=== PATIENT | male | born 1980 | race Caucasian/White ===

== ENCOUNTER 2016-09-02 06:29 | Emergency (ER) | payer BC ==
--- NOTE | 2016-09-02 07:39 | ED ---
General Adult HPI - General Chief complaint: Skin/Abscess/Foreign Body Stated complaint: Ear cyst Time Seen by Provider: 09/02/16 07:05 Source: patient, RN notes reviewed Mode of arrival: ambulatory Limitations: no limitations - History of Present Illness Initial comments: Patient is a pleasant 36-year-old male presenting to the emergency Department with left ear discomfort. Patient has had similar symptoms approximately 5 times total between both ears. Patient has pain and swelling. Symptoms have progressed over a few days. Patient did try to get into Dr. Jiménez's office yesterday however there is no availability. Patient has had previous incision and drainage. No fever. - Related Data Previous Rx's Medication Instructions Recorded Sulfamethox-Tmp 800-160Mg [Bactrim 2 each PO Q12HR #40 tab 09/02/16 DS 800-160 mg] Allergies Allergy/AdvReac Type Severity Reaction Status Date / Time No Known Allergies Allergy Verified 09/02/16 06:34 Review of Systems ROS Statement: Those systems with pertinent positive or pertinent negative responses have been documented in the HPI. ROS Other: All systems not noted in ROS Statement are negative. Constitutional: Denies: fever Eyes: Denies: eye pain ENT: Reports: ear pain Respiratory: Denies: cough Cardiovascular: Denies: chest pain Endocrine: Denies: fatigue Gastrointestinal: Denies: abdominal pain Genitourinary: Denies: dysuria Musculoskeletal: Denies: back pain Skin: Reports: lesions Past Medical History Past Medical History: No Reported History History of Any Multi-Drug Resistant Organisms: None Reported Past Surgical History: No Surgical Hx Reported Past Psychological History: No Psychological Hx Reported Smoking Status: Current every day smoker Past Alcohol Use History: Occasional Past Drug Use History: None Reported General Exam Limitations: no limitations General appearance: alert, in no apparent distress Head exam: Present: atraumatic Eye exam: Present: normal appearance, PERRL ENT exam: Present: normal oropharynx, other (2 cm area of swelling posterior lower ear with fluctuance) Neck exam: Present: normal inspection Respiratory exam: Present: normal lung sounds bilaterally Cardiovascular Exam: Present: regular rate, normal rhythm Extremities exam: Present: normal inspection Neurological exam: Present: alert Psychiatric exam: Present: normal affect, normal mood Skin exam: Present: other (Left posterior ear with 2 cm area of swelling and fluctuance no significant erythema.) Course Vital Signs 09/02/16 06:30 Temperature 97.1 F L Pulse Rate 79 Respiratory 18 Rate Blood Pressure 126/72 O2 Sat by Pulse 99 Oximetry Procedures - Incision & Drainage Consent Obtained: verbal consent Time Out Performed?: Yes Site: other (Posterior left ear) Anesthetic Used: lidocaine 1% Amount (mLs): 2 I&D Cleaning Method: Betadine Scalpel Used: #11 I&D Drainage Obtained: Pus Culture Obtained?: Yes Patient Tolerated Procedure: well, no complications Disposition Clinical Impression: Infected sebaceous cyst Disposition: HOME SELF-CARE Condition: Stable Instructions: Abscess Incision and Drainage (ED), Abscess (ED) Additional Instructions: Please follow-up with Dr. Jiménez primary care physician in the beginning of the week. Have them check culture results. Return for increased pain, swelling , redness, fevers, worsening symptoms or other concerns. Prescriptions: Sulfamethox-Tmp 800-160Mg [Bactrim DS 800-160 mg] 2 each PO Q12HR #40 tab Referrals: None,Stated [Primary Care Provider] - 1-2 days Devaughn Flowers MD [STAFF PHYSICIAN] - 1-2 days Celia Cranadll III, MD [STAFF PHYSICIAN] - 1-2 days
[2016-09-02 07:53] VITALS: BP 121/78; PULSE 78; RESP 16; TEMP 97.8
== END 2016-09-02 07:52 | disposition home or self-care (01) ==
LOC: EC 06:29
DX: L72.3 Sebaceous cyst (principal); F17.200 Nicotine dependence, unspecified, uncomplicated
CPT/HCPCS: 69000; 87070; 87205; 99283

== ENCOUNTER 2020-02-01 17:17 | Emergency (ER) | payer BC ==
[2020-02-01 17:28] VITALS: RESP 18
[2020-02-01] MEDS ORDERED: BACITRACIN OINT 1 EACH PACKET TOPICAL ONE (17:39)
[2020-02-01] MEDS ORDERED: LIDOCAINE 1% INJ 10MG/ML (20 ML MDV) SQ ONE (17:39)
--- NOTE | 2020-02-01 17:47 | ED ---
Skin/Abscess/FB HPI - General Chief complaint: Skin/Abscess/Foreign Body Stated complaint: abcess left ear Time Seen by Provider: 02/01/20 17:29 Source: patient Mode of arrival: ambulatory Limitations: no limitations - History of Present Illness Initial comments: Patient is a 39-year-old male presenting to emergency Department with complaints of an abscess behind his left ear. Patient states he has been feeling a small bump there in the past 2 days but then it feels like it got worse overnight. Patient states he has had these before, and behind both ears. He has seen an ENT for this. Denies any fever, chills, nausea, vomiting, severe pain. He has no further complaints at this time. - Related Data Previous Rx's Medication Instructions Recorded Sulfamethox-Tmp 800-160Mg [Bactrim 2 each PO Q12HR #40 tab 09/02/16 DS 800-160 mg] Sulfamethox-Tmp 800-160Mg [Bactrim 1 each PO Q12HR 5 Days #10 tab 02/01/20 Ds] Allergies Allergy/AdvReac Type Severity Reaction Status Date / Time No Known Allergies Allergy Verified 02/01/20 17:28 Review of Systems ROS Statement: Those systems with pertinent positive or pertinent negative responses have been documented in the HPI. ROS Other: All systems not noted in ROS Statement are negative. Past Medical History Past Medical History: No Reported History History of Any Multi-Drug Resistant Organisms: None Reported Past Surgical History: No Surgical Hx Reported Past Psychological History: No Psychological Hx Reported Smoking Status: Current every day smoker Past Alcohol Use History: Occasional Past Drug Use History: Marijuana General Exam - General Exam Comments Initial Comments: GENERAL: Patient is well-developed and well-nourished. Patient is nontoxic and in no acute distress. HEAD: Atraumatic, normocephalic. EYES: Pupils equal round and reactive to light, extraocular movements intact, sclera anicteric, conjunctiva are normal. Eyelids were unremarkable. ENT: TMs normal, nares patent, oropharynx clear without exudates. Moist mucous membranes. NECK: Normal range of motion, supple without lymphadenopathy or JVD. LUNGS: Unlabored respirations. Breath sounds clear to auscultation bilaterally and equal. No wheezes rales or rhonchi. HEART: Regular rate and rhythm without murmurs, rubs or gallops. ABDOMEN: Soft, nontender, normoactive bowel sounds. No guarding, no rebound. No masses appreciated. : Deferred MUSCULOSKELETAL: Normal extremities with adequate strength and normal range of motion, no pitting or edema. No clubbing or cyanosis. NEUROLOGICAL: Patient is alert and oriented x 3. Motor and sensory are also intact. Cranial nerves II through XII grossly intact. Symmetrical smile. Normal speech, normal gait. PSYCH: Normal mood, normal affect. SKIN: Warm, Dry, normal turgor. Patient has a small fluctuant abscess, 1 cm, behind the left ear. Mildly tender to palpation. Limitations: no limitations Course Vital Signs 02/01/20 17:22 Temperature 97.2 F L Pulse Rate 93 Respiratory 18 Rate Blood Pressure 146/102 O2 Sat by Pulse 99 Oximetry Procedures - Incision & Drainage Consent Obtained: verbal consent, written consent Indication: Abscess Site: face (behind left ear) Size (cm): 1 Anesthetic Used: lidocaine 1% Amount (mLs): 2 I&D Cleaning Method: Alcohol Wipe Scalpel Used: #11 I&D Drainage Obtained: Pus, Blood Culture Obtained?: No Patient Tolerated Procedure: well Medical Decision Making - Medical Decision Making Patient is 39-year-old male here with a small abscess behind his left ear. No fevers, vitals are stable. He has had this similar thing before, both ears. He does see an ENT. I did clean the area, perform an I&D, obtained purulent and bloody fluid. Patient tolerated procedure well. I will start him on a course of Bactrim. Patient is in agreement with this plan of care. He is stable for discharge. He can follow-up with his ENT if symptoms persist. Disposition Clinical Impression: Abscess of left external ear Disposition: HOME SELF-CARE Condition: Stable Instructions (If sedation given, give patient instructions): Abscess Incision and Drainage (ED) Additional Instructions: Please return to the Emergency Department if symptoms worsen or any other concerns. Apply warm compresses to the abscess area. Keep area clean and dry. Take antibiotics as prescribed. Follow-up with ENT if needed. Prescriptions: Sulfamethox-Tmp 800-160Mg [Bactrim Ds] 1 each PO Q12HR 5 Days #10 tab Is patient prescribed a controlled substance at d/c from ED?: No Referrals: Kieran Bee MD [Primary Care Provider] - 1-2 days
[2020-02-01 18:42] VITALS: BP 135/100; PULSE 80; TEMP 97.6
== END 2020-02-01 18:41 | disposition home or self-care (01) ==
LOC: EC 17:17
DX: H60.02 Abscess of left external ear (principal); F17.200 Nicotine dependence, unspecified, uncomplicated
CPT/HCPCS: 99282; 10060; J2001